=== PATIENT | female | born 1965 | race Caucasian/White ===

== ENCOUNTER 2018-04-18 05:28 | Day surgery (SDC) | payer MEDICAID ==
[~2018-04-18] VITALS: Ht 162.6 cm; Wt 77.1 kg
[~2018-04-18 05:28] MED LIST: CYCL10TA7 PO; DICL100G16 TP; DOCU-138 PO; GABA-533 PO; HYDR-4005 PO; IBUP-2030 PO
[2018-04-18 06:52] LABS: UCG SCREEN NEGATIVE
[2018-04-18] MEDS ORDERED: BUPIVACAINE HCL 0.5% (5MG/ML) 50ML ONE (07:16)
[2018-04-18] MEDS ORDERED: SKIN ADHESIVE 0.7 GM EA TOP ONE (07:16)
[2018-04-18] MEDS ORDERED: MIDAZOLAM HCL 2 MG/2 ML VIAL ONE (07:29)
[2018-04-18] MEDS ORDERED: PROPOFOL 200MG/20ML VIAL IV ONE (07:29)
[2018-04-18] MEDS ORDERED: FENTANYL CITRATE/PF 50MCG/ML 2ML VIAL ONE (07:29)
[2018-04-18] MEDS ORDERED: SUCCINYLCHOLINE CHLORIDE 200MG/10ML VIAL IV ONE (07:30)
[2018-04-18] MEDS ORDERED: ONDANSETRON HCL 4MG/2ML VIAL ONE (07:30)
[2018-04-18] MEDS ORDERED: GLYCOPYRROLATE 0.2 MG/ML 2ML VIAL ONE (07:30)
[2018-04-18] MEDS ORDERED: METOCLOPRAMIDE HCL 10MG/2ML VIAL ONE (07:30)
[2018-04-18] MEDS ORDERED: LIDOCAINE HCL 1% 20ML VIAL (Pyxis) INJ ONE (07:30)
[2018-04-18] MEDS ORDERED: CEFAZOLIN SODIUM 1000MG/VIAL ONE (07:37)
[2018-04-18] MEDS ORDERED: SODIUM CHLORIDE 0.9% 1,000 ML IV ONE (07:44)
[2018-04-18] MEDS ORDERED: HYDROMORPHONE HCL/PF 2MG/ML CPJ IV PRN (07:45)
[2018-04-18] MEDS ORDERED: MEPERIDINE HCL/PF 25MG/ML CPJ IV PRN (07:45)
[2018-04-18] MEDS ORDERED: ONDANSETRON HCL 4MG/2ML VIAL IV PRN (07:45)
== END 2018-04-18 09:50 | disposition home or self-care (01) ==
LOC: OR 05:28
PROVIDERS: ATTEND Surgery
DX: D17.24 Benign lipomatous neoplasm of skin and subcutaneous tissue of left leg (principal); I10 Essential (primary) hypertension; G89.29 Other chronic pain; E78.00 Pure hypercholesterolemia, unspecified; M48.02 Spinal stenosis, cervical region; G82.50 Quadriplegia, unspecified; M16.10 Unilateral primary osteoarthritis, unspecified hip; G62.9 Polyneuropathy, unspecified; Z79.1 Long term (current) use of non-steroidal anti-inflammatories (NSAID); Z79.899 Other long term (current) drug therapy; Z98.890 Other specified postprocedural states; Z88.8 Allergy status to other drugs, medicaments and biological substances
CPT/HCPCS: 27632; 81025; 88304; G0168; J0330; J0690; J2250; J2405; J2765; J3010; J3490; J7120; J2704